=== PATIENT | female | born 1945 | race Caucasian/White ===

== ENCOUNTER 2016-05-30 14:20 | Emergency (ER) | payer OTHER ==
[2016-05-30 14:33] VITALS: TEMP 98.5
[2016-05-30] MEDS ORDERED: ONDANSETRON DISINTEGRATING 4 MG TAB PO ONE (15:34)
[2016-05-30] MEDS ORDERED: MECLIZINE HCL 25 MG TAB PO ONE (15:39)
--- NOTE | 2016-05-30 15:42 | UCPHY ---
H & P Patient Type: Established Chief Complaint Nursing Narrative: Patient to with dizziness intermittently for the past few months and yesterday she states she felt a pop in her head and got "everything visual started moving around" for about 2 minutes and she got nauseated. Nausea and "vertigo" continue. No headache. Time Seen by Provider: 05/30/16 14:59 HPI/ROS: This patient complains of dizziness. She describes this as spinning sensation that is worse with head movement. She reports that she has had some intermittent dizziness for months now but symptoms or worsens since yesterday afternoon when she was lying on a couch and felt something pop in her head. Since that time and she describes buzzing in her head she admits this is probably ringing in her ears. She has associated nausea and decreased appetite. Her nausea worsens with movement. No other exacerbating or alleviating factors are noted. ROS: Constitutional: She reports no fevers. No fatigue. HEENT: No headache. No nasal congestion. No ear pain. She does have tinnitis. Pulmonary : Occasional shortness of breath with exertion but not at baseline. No coughing. Cardiovascular: No heart palpitations or chest pain. No lower extremity swelling. Neuro: No focal numbness tingling weakness except baseline left leg tingling and decreased sensation she has had for years she attributes to her chronic back pain from scoliosis. 10 point ROS is otherwise negative. Source: Patient Exam Limitations: No limitations - Personal History Current Tetanus Diphtheria and Acellular Pertussis (TDAP): No - Medical/Surgical History Hx Asthma: No Hx Chronic Respiratory Disease: No Hx Diabetes: No Hx Cardiac Disease: No Hx Renal Disease: No Hx Cirrhosis: No Hx Alcoholism: No Hx HIV/AIDS: No Hx Splenectomy or Spleen Trauma: No Other PMH: medical- scoliosis. surgery- none - Family History Significant Family History: Other (No family history of intracranial aneurysms or bleeding strokes. She does have a family history of premature coronary disease in her father). No: Heart disease, Vascular disease - Social History Smoking Status: Former smoker Alcohol Use: Rarely Drug Use: None - Physical Exam Exam: Physical exam: Vital signs are normal General: Patient is in no acute distress. HEENT: Is no external evidence of trauma on exam. Eyes: Pupils are equal and reactive to light. Extraocular motions are intact. Optic fundi: Clear with no papilledema or hemorrhage. Nose atraumatic. Ears: Clear bilaterally with no hemotympanum. Oropharynx: No dental trauma or malocclusion. No intraoral lacerations. Neck: Trachea is midline with no stridor. The patient has no midline neck tenderness and retains a full range of motion without increase in pain. Lungs: Clear to auscultation bilaterally Cardiac: Regular rate and rhythm no murmur gallop or rub. Chest: Nontender. Abdomen: Soft nontender no organomegaly Back: Nontender Extremities: Atraumatic Neuro: GCS of 15. Cranial nerves II through XII intact. Cerebellar exam is normal as judged by symmetric rapid hand movements bilaterally. No pronator drift. No sensory or motor deficits are appreciated. She has worsening vertigo with head movement. No notable nystagmus. Initial differential diagnosis: Intracranial bleed from ruptured aneurysm, neck adjustment followed by vertigo, benign positional vertigo, CV TECH lesion, coronary syndrome, metabolic abnormality Constitutional: Initial Vital Signs Temperature (C) 36.9 C 05/30/16 14:28 Heart Rate 74 05/30/16 14:28 Respiratory Rate 18 05/30/16 14:28 Blood Pressure 128/63 H 05/30/16 14:28 O2 Sat (%) 94 05/30/16 14:28 O2 Delivery Mode Room Air Allergies/Adverse Reactions: No Known Allergies Allergy (Verified 03/04/15 14:39) Home Medications: Medication Instructions Recorded Albuterol Hfa Anes Only [Proair 2 puffs IH Q4 PRN #1 mdi 03/02/15 Hfa Icu (*)] Fluticasone Hfa 220 Mcg [Flovent 2 puffs IH DAILY #1 mdi 03/02/15 220 MCG Hfa MDI (*)] Doxycycline Hyclate 100 mg PO BID #20 capsule 03/04/15 Fluticasone Nasal [Flonase Nasal 2 sprays NASAL DAILY #1 mdi 05/30/16 [place] (RX)] Meclizine HCl [Meclizine HCl 25 mg 25 mg PO TID PRN #20 tab 05/30/16 (RX,OTC)] Ondansetron Odt [Zofran Odt] 4 - 8 mg PO Q4PRN PRN #4 tab 05/30/16 Medical Decision Making - Diagnostics EKG Interpretation: 12 lead EKG performed at 3:41 p.m. reveals sinus rhythm at 70 Intervals: P R of 176, QRS is 100, QTC of 449 [place]: P of 69, QRS of-61, T 47 ST segments: Normal throughout Overall assessment normal sinus rhythm with left anterior fascicular block. Appreciate no evidence of acute ischemia. Imaging: CT Brain (Without Contrast) at 1524 hours History: Headache, vertigo. Comparison: None. Technique: Axial computed tomographic images of the brain without contrast. Dose reduction techniques were utilized. Findings: Ventricles, cisterns, and sulci are normal without atrophy, hydrocephalus, midline shift /herniation, or epidural/subdural hematomas. No acute intraparenchymal hemorrhage, definite infarct , or mass effect. Bone windows demonstrate no displaced fractures. Mild mucosal thickening in the left sphenoid sinus. No subarachnoid hemorrhage noted. Impression: 1. Normal CT brain without contrast. 2. Mild left sphenoid sinusitis. 3. Consider MRI of the brain without and with contrast enhancement, if there is continued clinical concern. Findings and recommendations discussed with Emergency Department physician, Dr. Timur Ferguson, at 1535 hours today. Final report concurs with initial preliminary interpretation. Dictated By: Natalio Iraheta ED Course/Re-evaluation: Zofran ODT for nausea with partial relief Meclizine p.o. Patient had relief of her nausea and significant reduction in the vertigo after treatment with above medications. She is able to ambulate without difficulty thereafter. Discussion: Patient has physical exam findings are most consistent with a peripheral vertigo. However the chronicity of her symptoms is concerning for potential central vertigo. Also, her history of a pop" in the head and a brief atypical headache is concerning for potential sentinel bleed. We will pursue imaging to rule this out. Will also pursue further workup given family history of premature coronary artery disease, and her age I discussed the head CT with , radiologist Neg. for any concerning findings as noted in read above. I also discussed this finding with the patient. Given the negative head CT and no other concerning focal findings I suspect the pop in her head was likely has a neck adjustment or inner ear pressure changing rather than anything that was actually intracranial. A review of her labs also reveals no concerning findings. - Data Points Laboratory Results: Laboratory Results 05/30/16 15:56 05/30/16 15:56 05/30/16 15:56 WBC 5.71 10^3/uL (3.80-9.50) RBC 4.51 10^6/uL (4.18-5.33) Hgb 13.7 g/dL (12.6-16.3) Hct 40.6 % (38.0-47.0) MCV 90.0 fL (81.5-99.8) MCH 30.4 pg (27.9-34.1) MCHC 33.7 g/dL (32.4-36.7) RDW 13.2 % (11.5-15.2) Plt Count 298 10^3/uL (150-400) MPV 10.3 fL (8.7-11.7) Neut % (Auto) 65.8 % (39.3-74.2) Lymph % (Auto) 25.4 % (15.0-45.0) [place] % (Auto) 7.0 % (4.5-13.0) Eos % (Auto) 0.7 % (0.6-7.6) Baso % (Auto) 0.9 % (0.3-1.7) Nucleat RBC Rel Count 0.0 % (0.0-0.2) Absolute Neuts (auto) 3.76 10^3/uL (1.70-6.50) Absolute Lymphs (auto) 1.45 10^3/uL (1.00-3.00) Absolute Monos (auto) 0.40 10^3/uL (0.30-0.80) Absolute Eos (auto) 0.04 10^3/uL (0.03-0.40) Absolute Basos (auto) 0.05 10^3/uL (0.02-0.10) Absolute Nucleated RBC 0.00 10^3/uL (0-0.01) Immature Gran % 0.2 % (0.0-1.1) Immature Gran # 0.01 10^3/uL (0.00-0.10) Sodium 136 mEq/L (134-144) Potassium 4.2 mEq/L (3.5-5.2) Chloride 102 mEq/L (97-110) Carbon Dioxide 24 mEq/l (22-31) Anion Gap 10 mEq/L (8-16) BUN 13 mg/dL (7-23) Creatinine 0.7 mg/dL (0.6-1.0) Estimated GFR > 60 Glucose 97 mg/dL (70-100) Calcium 10.0 mg/dL (8.5-10.4) Total Bilirubin 0.8 mg/dL (0.1-1.4) AST 13 L IU/L (14-46) ALT 19 IU/L (9-52) Alkaline Phosphatase 70 IU/L (38-126) Total Protein 7.1 g/dL (6.3-8.2) Albumin 3.9 g/dL (3.5-5.0) Medications Given: Discontinued Medications Meclizine HCl (Meclizine Hcl) 25 mg PO EDNOW ONE Stop: 05/30/16 15:40 Last Admin: 05/30/16 15:50 Dose: 25 mg Ondansetron HCl (Zofran Odt) 4 mg PO EDNOW ONE Stop: 05/30/16 15:35 Last Admin: 05/30/16 15:38 Dose: 4 mg Departure - Departure Disposition: Home, Routine, Self-Care Clinical Impression: Nausea Benign positional vertigo Qualifiers: Laterality: unspecified laterality Qualifier Code: (H81.10) Benign paroxysmal vertigo, unspecified ear Condition: Good Instructions: Benign Paroxysmal Positional Vertigo (ED) Additional Instructions: Diagnosis: Benign positional vertigo 2. Nausea Plan: Zofran for nausea if needed Meclizine for spinning sensation if needed Flonase steroid nasal spray Follow up with Dr. West-ENT physician for a recheck of her symptoms are not resolving over the next 3-7 days. Go to the emergency department for any significant worsening despite the treatment Referrals: NONE *PRIMARY CARE P,. [Primary Care Provider] - As per Instructions Asif West MD [Medical Doctor] - As per Instructions - PQRS PQRS Measurement: 134: Depression screening and followup, PRIME MD-PHQ2 (12 years and older) Over the last 2 weeks, how often have you been bothered by any of the following problems? 1. Feeling down, depressed, or hopeless? 2. Little interest or pleasure in doing things? Patient answered no to both 1 and 2 130: Documentation of medications. Reviewed all patient medications, doses, route and frequency. 226: Do you smoke? [No.] 47: 65 and older: Advanced care planning. Patient designates surrogate decision maker as spouse. 51: 18 years old and older with diagnosis of COPD, spirometry performance. NA 52: 18 years old and older with COPD and symptoms of COPD or FEV1<60% predicted prescribed a B Agonist. NA
--- NOTE | 2016-05-30 15:43 | CPEKG ---
Heart Rate: 70 RR Interval: 857 P-R Interval: 176 QRSD Interval: 100 QT Interval: 416 QTC Interval: 449 P [place]: 69 QRS [place]: -61 T Wave [place]: 47 EKG Severity - ABNORMAL ECG - EKG Impression: SINUS RHYTHM EKG Impression: PROBABLE LEFT ATRIAL ABNORMALITY EKG Impression: LEFT ANTERIOR FASCICULAR BLOCK Electronically Signed By: Timur Ferguson 30-May-2016 16:42:51
--- NOTE | 2016-05-30 15:47 | CT ---
CT Brain (Without Contrast) at 1524 hours History: Headache, vertigo. Comparison: None. Technique: Axial computed tomographic images of the brain without contrast. Dose reduction technique s were utilized. Findings: Ventricles, cisterns, and sulci are normal without atrophy, hydrocephalus, midline shift/h erniation, or epidural/subdural hematomas. No acute intraparenchymal hemorrhage, definite infarct, or mass effect. Bone windows demonstrate no displaced fractures. Mild mucosal thickening in the left sp henoid sinus. No subarachnoid hemorrhage noted. Impression: 1. Normal CT brain without contrast. 2. Mild left sphenoid sinusitis. 3. Consider MRI of the brain without and with contrast enhancement, if there is continued clinical co ncern. Findings and recommendations discussed with Emergency Department physician, Dr. Timur Ferguson, at 1535 hours today. Final report concurs with initial preliminary interpretation.
[2016-05-30 16:01] LABS: % IMMATURE GRANULYOCYTES 0.2 % (0.0-1.1); ABSOLUTE IMMATURE GRANULOCYTES 0.01 10^3/uL (0.00-0.10); ADD DIFF? NO; ADD MORPH? NO; ADD SCAN? NO; ATYPICAL LYMPHOCYTE FLAG 30 (0-99); FRAGMENT RBC FLAG 0 (0-99); HEMATOCRIT 40.6 % (38.0-47.0); HEMOGLOBIN 13.7 g/dL (12.6-16.3); LEFT SHIFT FLG 0 (0-99); LIPEMIA HEMOLYSIS FLAG 80 (0-99); MEAN CELL HEMOGLOBIN 30.4 pg (27.9-34.1); MEAN CELL HEMOGLOBIN CONCENTR. 33.7 g/dL (32.4-36.7); MEAN PLATELET VOLUME 10.3 fL (8.7-11.7); PLATELET CLUMPS FLAG 10 (0-99); PLATELET COUNT 298 10^3/uL (150-400); RED BLOOD CELL COUNT 4.51 10^6/uL (4.18-5.33); RED CELL DISTRIBUTION WIDTH 13.2 % (11.5-15.2)
[2016-05-30 16:19] LABS: ALANINE AMINOTRANSFERASE 19 IU/L (9-52); ALBUMIN 3.9 g/dL (3.5-5.0); ALKALINE PHOSPHATASE 70 IU/L (38-126); ANION GAP 10 mEq/L (8-16); ASPARTATE AMINOTRANSFERASE 13 IU/L (14-46); BILIRUBIN,TOTAL 0.8 mg/dL (0.1-1.4); CARBON DIOXIDE 24 mEq/l (22-31); CHLORIDE 102 mEq/L (97-110); CREATININE 0.7 mg/dL (0.6-1.0); GLOMERULAR FILTRATION RATE > 60; GLUCOSE 97 mg/dL (70-100); POTASSIUM 4.2 mEq/L (3.5-5.2); SODIUM 136 mEq/L (134-144); TOTAL PROTEIN 7.1 g/dL (6.3-8.2)
[2016-05-30 20:14] VITALS: BP 129/82; PULSE 72; RESP 16; O2SAT 96
== END 2016-05-30 17:00 | disposition home or self-care (01) ==
LOC: CED 14:20
DX: H81.10 Benign paroxysmal vertigo, unspecified ear (principal); Z87.891 Personal history of nicotine dependence
CPT/HCPCS: 70450; 93005; G0463; 80053-PO; 85025-PO; 93010-PO; 99215-PO